=== PATIENT | female | born 1990 | race Caucasian/White ===

== ENCOUNTER 2017-12-21 16:23 | Outpatient (CLI) | payer MEDICAID, SELFPAY ==
--- NOTE | 2017-12-21 14:54 | DI.US_ITS ---
SYMPTOMS/DIAGNOSIS: DATING, Z33.1 OB ULTRASOUND: Many abnormalities cannot be diagnosed. A normal exam does not exclude a congenital anomaly. Radiology No. [id number] LMP: 10/26/17 Exam Date: 12/21/17 [facility] wks days on EDC ([facility]) Confirmed: HISTORY: ---- PREDICTED GESTATIONAL AGE NUMBER 8 weeks with a range of 7 weeks to 9 weeks. 1 Determined by___1STUS_X__LMP___HISTORY PLACENTA PRESENTATION Grade Cephalic___ Anterior___Posterior___ Breech____ Right Left Transverse(head right___ Fundal___Low-lying___Previa___ Transverse(head left___ Varying BIOMETRY AMNIOTIC FLUID BPD: mm weeks Normal HC: mm weeks Oligo Polyhydramnios AC: mm weeks FL: mm weeks AMNIOTIC FLUID INDEX >26 WK CRL: 4.2 mm 6+1 weeks Cisterna Magna: mm CI: RUQ: LUQ Cerebellum: cm EFW: grams Percentile RLQ: LLQ Total: cms Composite AGE= 6+1 wks EDC by US: 08/15/18 BIOPHYSICAL PROFILE ANATOMY IDENTIFIED SCORE 0/2 Heart: 4-Chamber___Rate:BPM 162 LVOT: RVOT: Amniotic Fluid(>2cms)____ Stomach: Kidneys: Respirations (>30 secs) Bladder: Post. Fossa: Body Flex/Extension 3 vessel cord: Ventricles: cord insertion: Lips:____ Extremity Flex/Extension spinal morphology: Nose: Total Score= Palate: NS=not seen COMMENTS: OB ultrasound was performed utilizing first trimester protocol with transabdominal and transvaginal scanning. There is an intrauterine gestation with crown-rump length measurements consistent with gestational age 6 weeks 1 day and an EDC of 08/15/18. cardiac activity is identified at a rate of 162 bpm. Right ovary contains a 16 mm simple cyst and a complex 21 mm, predominantly cystic, mixed echogenicity mass consistent with corpus luteum cyst. Left ovary is unremarkable. No free fluid identified in the cul-de-sac. A tiny amount of free right adnexal fluid.
== END 2017-12-21 16:43 ==
PROVIDERS: PCP Nurse Practitioner Family; Visit Provider Nurse Practitioner Women's Health
DX: Z34.91 Encounter for supervision of normal pregnancy, unspecified, first trimester (principal); N83.11 Corpus luteum cyst of right ovary
CPT/HCPCS: 76817

== ENCOUNTER 2018-01-10 15:57 | Outpatient (CLI) | payer MEDICAID, SELFPAY ==
[2018-01-10 16:46] LABS: Abs Immature Grans 0.01 k/cumm (0.0-0.09); Absolute Basophil Count 0.02 k/cumm (0.0-0.2); Absolute Eosinophil Count 0.06 k/cumm (0.0-0.7); Absolute Lymphocyte Count 1.59 k/cumm (1.2-3.4); Absolute Monocyte Count 0.49 k/cumm (0.11-0.7); Absolute Neutrophil Count 5.34 k/cumm (1.2-6.7); Basophils % 0.3; Eosinophils % 0.8; HCT 37.6 % (36.0-46.0); Immature Grans % 0.1; Lymphocytes % 21.2; Mean Corp. HGB Concentration 34.6 g/dL (32.0-36.0); Mean Corpuscular Volume 86.8 fL (80-95); Mean Platelet Volume 10.5 fL (8.0-11.0); Monocytes % 6.5; Neutrophils % 71.1; Platelet Count 262 x1000/uL (130-400); RBC 4.33 m/cumm (4.00-5.20); RBC Distribution Width 12.4 % (11.7-14.6); White Blood Cell Count 7.51 k/cumm (4.4-10.8)
[2018-01-10 18:45] LABS: TSH (W/Ref FT4) 1.12 uIU/mL (0.358-3.74)
[2018-01-12 09:11] LABS: Hepatitis B Surface Ag Negative (NEGAT)
[2018-01-12 09:20] LABS: Hepatitis C Ab w Rflx HCV PCR Negative (NEGAT)
[2018-01-12 10:11] LABS: HIV-1/2 Ag & Ab Screen Negative (NEGAT)
[2018-01-12 14:32] LABS: Rubella IgG Ab (UVM) Positive; Syphilis Serology (RPR) Negative (Negative); Varicella IgG Antibody Positive
== END 2018-01-10 16:17 ==
PROVIDERS: PCP Nurse Practitioner Family; Visit Provider Advanced Practice Midwife
DX: Z34.91 Encounter for supervision of normal pregnancy, unspecified, first trimester (principal); Z11.59 Encounter for screening for other viral diseases; Z11.4 Encounter for screening for human immunodeficiency virus [HIV]
CPT/HCPCS: 36415; 80055; 86787; 86803; 86850; 86900; 86901; 87340; 87389; 84443; 86592; 86762

== ENCOUNTER 2018-01-10 16:48 | Outpatient (REF) | payer MEDICAID, SELFPAY ==
[2018-01-10 18:34] LABS: *AMPHETAMINES SCREEN URINE Negative (Negative); *BARBITURATES SCREEN URINE Negative (Negative); *BENZODIAZEPINES SCREEN URINE Negative (Negative); Cannabinoids THC Negative (Negative); Cocaine Screen,Urine Negative (Negative); METHADONE URINE SCREEN Negative (Negative); OPIATES URINE SCREEN Negative (Negative)
[2018-01-10 18:43] LABS: Tricyclic Antidepressants Negative (Negative)
[2018-01-12 14:48] LABS: Chlamydia Result Negative; GC Result Negative; Specimen Description CERVIX
[2018-01-14 14:21] LABS: Buprenorphine Negative; Norbuprenorphine Negative
== END 2018-01-10 17:08 ==
LOC: LBN 16:48
PROVIDERS: PCP Nurse Practitioner Family; Visit Provider Advanced Practice Midwife
DX: Z34.91 Encounter for supervision of normal pregnancy, unspecified, first trimester (principal); Z11.3 Encounter for screening for infections with a predominantly sexual mode of transmission
CPT/HCPCS: 80307; 87491; 87591; 87086

== ENCOUNTER 2018-01-20 14:42 | Outpatient (CLI) | payer MEDICAID, SELFPAY ==
[2018-01-20 16:25] LABS: Glucose,1 Hr (Glucola) 75 mg/dL (80-140)
== END 2018-01-20 15:02 ==
PROVIDERS: PCP Nurse Practitioner Family; Visit Provider Advanced Practice Midwife
DX: Z34.91 Encounter for supervision of normal pregnancy, unspecified, first trimester (principal)
CPT/HCPCS: 36415; 82950

== ENCOUNTER 2018-03-21 00:38 | Outpatient (CLI) | payer MEDICAID, SELFPAY ==
--- NOTE | 2018-03-21 10:48 | DI.US_ITS ---
SYMPTOMS/DIAGNOSIS: ROUTINE [facility], Z33.1 OB ULTRASOUND: Many abnormalities cannot be diagnosed. A normal exam does not exclude a congenital anomaly. Radiology No. [id number] LMP: Exam Date: 03/21/18 [facility] wks days on EDC ([facility]) 08/15/08 Confirmed: HISTORY: PREDICTED GESTATIONAL AGE NUMBER 19 weeks with a range of 18 weeks to 20 weeks. 1 Determined by_X__1ST US___LMP___HISTORY PLACENTA PRESENTATION Grade I Cephalic___ Anterior___Posterior_X__ Breech____ Right Left Transverse(head right___ Fundal___Low-lying___Previa___ Transverse(head left___ Varying__X____ BIOMETRY AMNIOTIC FLUID BPD: 44 mm 19+1 weeks Normal HC: 167 mm 19+3 weeks AC: 140 mm 19+3 weeks FL: 29 mm 19 weeks AMNIOTIC FLUID INDEX >26 WK CRL: mm weeks Cisterna Magna: 4.5 mm CI: 77 RUQ: LUQ Cerebellum: 1.9 cm EFW: 281 grams Percentile: 60th RLQ: LLQ Total: cms Composite AGE= 19+2 wks EDC by US: 08/13/18 BIOPHYSICAL PROFILE ANATOMY IDENTIFIED SCORE 0/2 Heart: 4-Chamber_X__Rate:BPM 141 LVOT: X RVOT:__X Amniotic Fluid(>2cms)____ Stomach:__X Kidneys:__X Respirations (>30 secs) Bladder:___X Post. Fossa:___X Body Flex/Extension 3-vessel cord:___X____Ventricles:____X Cord insertion:__X___ Lips:_X___ Extremity Flex/Extension Spinal morphology:__X Nose:__X___ Total Score= Palate:___X____ NS=not seen
== END 2018-03-21 00:58 ==
PROVIDERS: PCP Nurse Practitioner Family; Visit Provider Advanced Practice Midwife
DX: Z34.92 Encounter for supervision of normal pregnancy, unspecified, second trimester (principal)
CPT/HCPCS: 76805

== ENCOUNTER 2018-05-03 15:29 | Observation (INO) | payer MEDICAID, SELFPAY ==
[2018-05-03] VITALS (9 sets, daily range): BP systolic 125–129; BP diastolic 60–85; PULSE 73–88; RESP 13–19; TEMP 37; O2SAT 96–100
--- NOTE | 2018-05-03 16:02 | DI.US_ITS ---
SYMPTOM/DIAGNOSIS: EVAL OVARIES, BABY OB ULTRASOUND: Comparison is made with 21 Mar 2018 The fetus is in breech position. The placenta is posterior. The biometric measurements corresponds to 25 weeks 1 day which is consistent with previous dating. cardiac activity and motion were identified. The amniotic fluid index appears normal at 13.8 Both ovaries were visualized which show normal blood flow. No evidence of mass or torsion seen. There is no free fluid in the pelvis. IMPRESSION: Intact placenta. Normal LAURA. Normal ovaries. No abnormalities are identified.
--- NOTE | 2018-05-03 16:02 | DI.US_ITS ---
SYMPTOM/DIAGNOSIS: EVAL APPE LIMITED ABDOMEN ULTRASOUND: The area of the patient's pain in the abdominal wall was scanned. There is a circumscribed ovoid homogeneous fatty echogenicity area corresponding to the palpable abnormality in the midline above the level of the umbilicus. It measures 4.2 x 1.1 x 3.1. The findings could represent a lipoma. No definite hernia is seen although a fatty containing hernia is also a possibility. No suspicious mass or fluid collection is seen. IMPRESSION: 4.2 cm fatty containing lesion above the umbilicus corresponding to the palpable abnormality could represent a lipoma vs fatty containing hernia.
[2018-05-03] MEDS: Normal Saline 1,000 ML 1000 ML IV (16:08)
[2018-05-03] MEDS: Acetaminophen 500 MG TAB 1000 MG PO (16:08)
[2018-05-03 16:17] LABS: Abs Immature Grans 0.01 k/cumm (0.0-0.09); Absolute Basophil Count 0.01 k/cumm (0.0-0.2); Absolute Eosinophil Count 0.03 k/cumm (0.0-0.7); Absolute Lymphocyte Count 1.86 k/cumm (1.2-3.4); Absolute Neutrophil Count 5.41 k/cumm (1.2-6.7); Basophils % 0.1; Eosinophils % 0.4; HCT 35.6 % (36.0-46.0); Immature Grans % 0.1; Lymphocytes % 23.2; Mean Corp. HGB Concentration 33.7 g/dL (32.0-36.0); Mean Corpuscular Hemoglobin 29.9 pg (27.0-33.0); Mean Corpuscular Volume 88.8 fL (80-95); Mean Platelet Volume 10.4 fL (8.0-11.0); Monocytes % 8.7; Neutrophils % 67.5; Platelet Count 245 x1000/uL (130-400); RBC 4.01 m/cumm (4.00-5.20); RBC Distribution Width 12.7 % (11.7-14.6); White Blood Cell Count 8.02 k/cumm (4.4-10.8)
[2018-05-03 16:25] LABS: Bilirubin Negative (Negative); Blood Negative (Negative); Clarity Clear; Glucose Negative (Negative); Ketones Trace mg/dL (Negative); Leukocyte Esterase Negative (Negative); Nitrite Negative (Negative); Specific Gravity 1.025 (1.005-1.025); Urobilinogen 0.2 EU/dL (Up TO 0.2)
[2018-05-03 16:50] LABS: ALT 24 U/L (12-78); AST 25 U/L (15-37); Albumin 3.1 g/dL (3.4-5.0); Alkaline Phosphatase 51 U/L (46-116); Anion Gap 11.3 mmol/L (3-11); BUN 13 mg/dL (7-18); Bilirubin, Total 0.3 mg/dL (0.2-1.0); CO2 25.7 mmol/L (21.0-32.0); CREATININE 0.63 mg/dL (0.55-1.02); Calcium 8.9 mg/dL (8.5-10.1); Chloride 100 mmol/L (98-107); Glucose 80 mg/dL (70-100); Lipase 129 U/L (73-393); Potassium 3.3 mmol/L (3.5-5.1); Sodium 137 mmol/L (136-145); Total Protein 7.5 g/dL (6.4-8.2)
--- NOTE | 2018-05-03 17:18 | SCONE_ITS ---
Date of service: 05/03/18 Time of Service: 17:12 Assessment and Plan (1) : Start date: 05/03/18 Start time: 17:15 Current visit: No Status: Acute pt seen and examined bs, seems like related to he no WBC hungry with pain not consistant with acute appy us done unable to visulize the appendix (2) Abdominal pain affecting : Start date: 05/03/18 Start time: 17:17 Current visit: Yes Status: Acute ob to see patient History of Present Illness Chief Complaint: abd pain, goes across my abdomen Narrative: pt was eating hungry and feels better Review of Systems Review of Systems All systems reviewed & are unremarkable except as noted in HPI and below Constitutional Reports as per HPI Gastrointestinal Reports as per HPI and Reports abdominal pain PFSH Medical History Contraception (Resolved) Tobacco use disorder (Resolved) Family History Other History of hypertension Social History household members: significant other and children number of children: 2 current occupational status: employed current occupation: [employer] current occupational exposures/hazards: Yes Smoking/Tobacco Use Status: Former Tobacco Use alcohol intake: never substance use type: does not use seatbelt use: always do you feel safe at home: Yes victim of physical abuse: No victim of emotional abuse: No victim of sexual abuse: No History History 3 Para 2 Hx # Term Pregnancies 1 Multiple births 0 Hx # Pregnancies 1 Ectopic pregnancies 0 AB induced 0 Hx Number of Living Children 2 AB spontaneous 0 Exam GI Inspection: normal to inspection Palpation: soft Percussion: normal to percussion Auscultation: normal bowel sounds Results Last Vital Signs Temp 37 C 05/03/18 15:40 Pulse 73 05/03/18 16:48 Resp 17 05/03/18 16:48 BP 125/60 05/03/18 16:48 Pulse Ox 98 05/03/18 16:48 Labs : 05/03/18 15:40 05/03/18 15:40 Laboratory Results - last 24 hr 05/03/18 05/03/18 05/03/18 15:40 15:40 16:15 WBC 8.02 RBC 4.01 Hgb 12.0 Hct 35.6 L MCV 88.8 MCH 29.9 MCHC 33.7 RDW 12.7 Plt Count 245 MPV 10.4 Immature Gran % 0.1 Neutrophils % 67.5 Lymphocytes % 23.2 Monocytes % 8.7 Eosinophils % 0.4 Basophils % 0.1 Absolute Neutrophils 5.41 Absolute Lymphocytes 1.86 Absolute Monocytes 0.70 Absolute Eosinophils 0.03 Absolute Basophils 0.01 Sodium 137 Potassium 3.3 L Chloride 100 Carbon Dioxide 25.7 Anion Gap 11.3 H BUN 13 Creatinine 0.63 Estimated GFR/1.73 m2 >= 60.00 Glucose 80 Calcium 8.9 Total Bilirubin 0.3 AST 25 ALT 24 Alkaline Phosphatase 51 Total Protein 7.5 Albumin 3.1 L Lipase 129 Urine Color Yellow Urine Clarity Clear Urine pH 7.0 Ur Specific [place] 1.025 Urine Protein Negative Urine Ketones Trace H Urine Blood Negative Urine Nitrite Negative Urine Bilirubin Negative Urine Urobilinogen 0.2 Ur Leukocyte Esterase Negative Urine Glucose Negative
--- NOTE | 2018-05-03 17:19 | W.ED.GENAD ---
Discharge Plan Disposition Patient Disposition: [facility] INPATIENT Condition: Good Discharge Details Chief Complaint: EDUCATION PROFESSIONAL Clinical Impression: , Abdominal pain affecting Reason For Visit: PELVIC PAIN Admit Date/Time: 05/03/18 17:18 Admit Provider: Ana Parmar Attending Provider: Ana Parmar Primary Care Provider: Cathleen Perry ED Provider: Gus Osborn Discharge Data Discharge Date/Time-TO BE ENTERED AT DEPARTURE: 05/03/18 17:45 Medical Decision Making This is a pleasant 27-year-old female who is 25 weeks who is a presents today for evaluation of lower pelvic pain and mild periumbilical pain. Pain is been present for the last few hours. It is achy in nature, she has had no concerning symptoms of vaginal discharge, vaginal bleeding, or change in the baby's movements. Baby's heart rate was 140 by bedside nursing ultrasound exam. Physical exam demonstrates mild tenderness in the lower abdominal/pelvic regions. She denies any dysuria, or hematuria. She does have a small amount of tenderness over the periumbilical region, and there is a vaguely palpable mass that can be palpated however there is no redness, induration, or firmness. No auscultation of bowel sounds over this. I doubt incarcerated hernia or strangulated hernia. Differential does include mass, lipoma, or fatty hernia. With the location of the patient's pain differential in addition to various obstetrics etiologies including ovarian torsion, ovarian cyst, placental tissue, also includes appendicitis. I would have expected the pain to be in the right upper quadrant due to her if it was appendicitis however it still remains on the differential. Urinalysis is benign, laboratory workup shows no white count or bandemia. We did get an ultrasound, there is no evidence of incarceration or strangulation of bowel or presence of bowel in the periumbilical lesion. Essentially a lipoma per radiology report. The majority of her pain being in the lower abdominal regions and pelvic regions the ovaries were visualized and showed no evidence of torsion or significant cyst. Appendix was not visualized. Babies biophysical profile was otherwise benign. Patient had notable improvement of her symptoms with Tylenol and fluids. She is feeling much better at this time, and also feels hunger and a desire to eat. We did consult surgery and had Dr. Borden, and assessed the patient. He too feels that there is no acute surgical etiology and no clinical evidence of appendicitis at this time. However she has noticed what she feels may be contractions occurring every 3 minutes. We did consult the patient's wildlife management professor who is managing her care, I discussed the case with her. She agrees with the current workup and agrees with the need for continued monitoring. Patient will be transferred directly to the OB floor for further monitoring and management by the OB team. I have extensively reviewed the treatment plan with the patient. I have addressed all patient concerns at this time. I have also discussed the plan with the admitting physician and they agree with the current assessment and plan and have agreed to assume responsibility for the patient. All parties demonstrate verbal understanding and agreement with our assessment and plan at this time. CLINICAL HISTORY: 27 years old, female; Pain; Other: Rlq pain/ midline abd pain; PT 25 weeks preg; ; Additional info: PT C/O midline abdominal pain/lump superior to umbilicus which shows a 4.2 x 1.1 x 3.1 cm solid mass w/ mild vascularity ? lipoma vs mass. PT vaguely C/O rlq pain; Appendix not visualized TECHNIQUE: Real-time ultrasound of the abdomen with image documentation. Examination was focused on the appendix. COMPARISON: US OB 2-3 trimester 05/03/2018 4:23 PM FINDINGS: Appendix: Appendix not identified. No sonographic abnormality right lower quadrant. Soft tissues: Ovoid slightly hypoechoic solid lesion anterior abdominal wall at midline at the area of clinical concern, 4.2 x 1.1 x 3.1 cm. IMPRESSION: 1. Appendix not identified. No sonographic abnormality right lower quadrant. 2. Ovoid slightly hypoechoic solid lesion anterior abdominal wall at midline at the area of clinical concern, 4.2 x 1.1 x 3.1 cm. Dictated and Authenticated by: Shivam Gee MD. OB ULTRASOUND: Comparison is made with 21 Mar 2018 The fetus is in breech position. The placenta is posterior. The biometric measurements corresponds to 25 weeks 1 day which is consistent with previous dating. cardiac activity and motion were identified. The amniotic fluid index appears normal at 13.8 Both ovaries were visualized which show normal blood flow. No evidence of mass or torsion seen. There is no free fluid in the pelvis. IMPRESSION: Intact placenta. Normal LAURA. Normal ovaries. No abnormalities are identified. Ordered By: Irena,Gus R DO [facility] General Date/Time Provider Initiated Documentation: 05/03/18 15:38. HPI Narrative: This is a 27-year-old female who is a currently at 25 weeks who presents today for evaluation of abdominal cramping. Patient states that 2-3 hours ago she developed mild cramping-like sensation in her right lower quadrant that radiates to her left lower quadrant. Pain is relatively constant, she denies any vaginal discharge, dysuria, hematuria or increased urinary frequency. She does admit to some mild nausea but denies any significant vomiting. She has been eating and drinking well throughout the day, and has been having regular bowel movements. She states that baby has still been kicking since the symptoms began. She denies any recent intercourse or painful intercourse. She denies any previous abdominal surgeries. She denies any other modifying factors. She denies any pertinent family history or IV or illicit drug use. Related Data Home Medications Medication Instructions Recorded Confirmed multivitamin tablet 1 tab PO DAILY 12/26/17 05/03/18 ranitidine 150 mg capsule 150 mg PO BID cap 12/26/17 05/03/18 docusate sodium 100 mg capsule 100 mg PO DAILY #60 cap 01/10/18 05/03/18 aspirin 81 mg tablet,delayed 81 mg PO DAILY tab 02/07/18 05/03/18 release ondansetron 8 mg disintegrating 8 mg PO TID PRN #10 tab 02/08/18 05/03/18 tablet Previous Rx's Medication Instructions Recorded docusate sodium 100 mg capsule 100 mg PO DAILY #60 cap 01/10/18 ondansetron 8 mg disintegrating 8 mg PO TID PRN #10 tab 02/08/18 tablet Allergies Allergy/AdvReac Type Severity Reaction Status Date / Time No Known Drug Allergies Allergy none Unverified 05/03/18 15:43 General 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: 2 Review of Systems Review of Systems All systems reviewed & are unremarkable except as noted in HPI and below PFSH Medical History Contraception (Resolved) Tobacco use disorder (Resolved) Family History Other History of hypertension Social History household members: significant other and children number of children: 2 current occupational status: employed 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 current occupational exposures/hazards: Yes Smoking/Tobacco Use Status: Former Tobacco Use alcohol intake: never substance use type: does not use seatbelt use: always do you feel safe at home: Yes victim of physical abuse: No victim of emotional abuse: No victim of sexual abuse: No History History 3 Para 2 Hx # Term Pregnancies 1 Multiple births 0 Hx # Pregnancies 1 Ectopic pregnancies 0 AB induced 0 Hx Number of Living Children 2 AB spontaneous 0 Exam Narrative Exam Narrative: 1.Const: Well-nourished, Well-developed, appearing stated age 2.Eyes: PERRL, no conjunctival injection, and symmetrical lids. 3.ENT: Atraumatic external nose and ears. Moist MM. Neck: Symmetric, trachea midline, No thyromegaly. 4.CVS: +S1/S2, No murmurs or gallops. Peripheral pulses 2+ and equal in all extremities. Brisk capillary refill in all extremities. 5.RESP: Unlabored respiratory effort. Clear to auscultation bilaterally. No wheezes rales or rhonchi 6.GI: Soft, Nondistended, No hepatosplenomegaly. No guarding or rebound. Very mild pain in the right lower and left lower abdominal quadrants/left and right pelvic regions. Minimal pain in the infraumbilical region. No pain in the right upper quadrant, or left upper quadrant. No evidence of a positive obturator or psoas sign. Appropriately gravid abdomen. 7.MSK: Normocephalic/Atraumatic, Extremities w/o deformity or ttp No cyanosis or clubbing, Normal movement of all extremities 8.Skin: Warm, Dry. No rashes or lesions. 9.Neuro: magnaflux operator II-XII grossly intact. Sensation grossly intact, no focal neurologic deficits. 10.Psych: (AAO) x3. Appropriate mood and affect Course Vital Signs Temperature 37 C 05/03/18 15:40 Pulse 88 05/03/18 15:40 Respiratory Rate 16 05/03/18 15:40 Blood Pressure 129/85 05/03/18 15:40 Pulse Oximetry 99 05/03/18 15:40 Temperature 37 C 05/03/18 15:40 Temperature Source Skin 05/03/18 15:40 Pulse 73 05/03/18 16:48 Pulse 80 05/03/18 16:48 Respiratory Rate 17 05/03/18 16:48 Respiratory Effort Non-Labored 05/03/18 15:40 Blood Pressure 125/60 05/03/18 16:48 Blood Pressure Mean 76 05/03/18 16:48 Blood Pressure Position Supine 05/03/18 15:40 Pulse Oximetry 98 05/03/18 16:48 Oxygen Delivery Method Room Air 05/03/18 15:40 Oxygen Flow Rate 0 05/03/18 15:40 Pain Level 4 05/03/18 15:44 Lab/Test Results Lab/Test Results: Laboratory Tests Range/Units 05/03/18 05/03/18 05/03/18 15:40 15:40 16:15 WBC (4.4-10.8) k/cumm 8.02 RBC (4.00-5.20) m/cumm 4.01 Hgb (12.0-15.5) g/dL 12.0 Hct (36.0-46.0) % 35.6 L MCV (80-95) fL 88.8 MCH (27.0-33.0) pg 29.9 MCHC (32.0-36.0) g/dL 33.7 RDW (11.7-14.6) % 12.7 Plt Count (130-400) x1000/uL 245 MPV (8.0-11.0) fL 10.4 Immature Gran % 0.1 Neutrophils % 67.5 Lymphocytes % 23.2 Monocytes % 8.7 Eosinophils % 0.4 Basophils % 0.1 Absolute Neutrophils (1.2-6.7) k/cumm 5.41 Absolute Lymphocytes (1.2-3.4) k/cumm 1.86 Absolute Monocytes (0.11-0.7) k/cumm 0.70 Absolute Eosinophils (0.0-0.7) k/cumm 0.03 Absolute Basophils (0.0-0.2) k/cumm 0.01 Sodium (136-145) mmol/L 137 Potassium (3.5-5.1) mmol/L 3.3 L Chloride (98-107) mmol/L 100 Carbon Dioxide (21.0-32.0) mmol/L 25.7 Anion Gap (3-11) mmol/L 11.3 H BUN (7-18) mg/dL 13 Creatinine (0.55-1.02) mg/dL 0.63 Estimated GFR/1.73 m2 (mL/min/1.73m2) >= 60.00 Glucose (70-100) mg/dL 80 Calcium (8.5-10.1) mg/dL 8.9 Total Bilirubin (0.2-1.0) mg/dL 0.3 AST (15-37) U/L 25 ALT (12-78) U/L 24 Alkaline Phosphatase (46-116) U/L 51 Total Protein (6.4-8.2) g/dL 7.5 Albumin (3.4-5.0) g/dL 3.1 L Lipase (73-393) U/L 129 Urine Color (Yellow) Yellow Urine Clarity Clear Urine pH (5-8) 7.0 Ur Specific [place] (1.005-1.025) 1.025 Urine Protein (Negative) mg/dL Negative Urine Ketones (Negative) mg/dL Trace H Urine Blood (Negative) Negative Urine Nitrite (Negative) Negative Urine Bilirubin (Negative) Negative Urine Urobilinogen (Up TO 0.2) EU/dL 0.2 Ur Leukocyte Esterase (Negative) Negative Urine Glucose (Negative) mg/dL Negative
--- NOTE | 2018-05-03 17:26 | NUR.NOTE ---
report given to OBG/YN Nursing Note:
--- NOTE | 2018-05-03 17:35 | DI.VRAD_ITS ---
EXAM: US After First Trimester, Transabdominal EXAM DATE/TIME: 05/03/2018 4:37 PM CLINICAL HISTORY: 27 years old, female; Pain; complicated by abdominal or pelvic pain; Other: Rlq pain/midline pain; Gestational age or lmp: 25+1; ; Additional info: PT C/O midline abdominal pain/lump superior to umbilicus which shows a 4.2 x 1.1 x 3.1 cm solid mass w/ mild vascularity ? lipoma vs mass. PT vaguely C/O rlq pain; Appendix not visualized TECHNIQUE: Real-time transabdominal obstetrical ultrasound of the maternal pelvis and a second or third trimester with image documentation. COMPARISON: US OB 2-3 trimester 03/21/2018 6:10 PM FINDINGS: GESTATION: Gestation: Single live intrauterine gestation. Heart rate: cardiac motion present with a heart rate of 144 beats/min. Presentation: Breech position. Placenta: Unremarkable. No subchorionic bleed. Posterior placenta. Amniotic fluid: LAURA 13.8 cm. BIOMETRY: Estimated gestational age: Measurements correspond to an estimated gestational age of 25 weeks 1 days. Appropriate interval growth compared to previous exam. Estimated due date: DELBERT: August 15, 2018. Estimated weight: EFW: 764 g. Biparietal diameter: BPD: 6.2 cm 25 week 1 day +/- 15 day Head circumference: HC: 23.2 cm 25 week 1 day +/- 14 day Abdominal circumference: AC: 20.5 cm 25 week 1 day +/- 50 day Femur length: FL: 4.5 cm 24 week 6 day +/- 50 day MATERNAL: Uterus: Unremarkable. Cervix: Cervix not well-visualized. Right adnexa: Right ovary 2.8 x 2.3 x 2.1 cm. No evidence of torsion. Left adnexa: Left ovary 3.2 x 2.5 x 2.1 cm. No evidence of torsion. IMPRESSION: Single living IUP. Dictated and Authenticated by: Shivam Gee MD. Ordering:GRIFFIN Weber MD
[2018-05-03] MEDS: Normal Saline 1,000 ML 200 ML IV (18:20)
== END 2018-05-03 19:07 | disposition home or self-care (01) ==
LOC: ER 17:28 → OBS 18:12
PROVIDERS: Admitting Provider Advanced Practice Midwife; Emergency Provider Student in an Organized Health Care Education/Training Program; PCP Nurse Practitioner Family; Visit Provider Advanced Practice Midwife
DX: O26.892 Other specified pregnancy related conditions, second trimester (principal); R10.2 Pelvic and perineal pain; R10.31 Right lower quadrant pain; R10.33 Periumbilical pain; R19.05 Periumbilic swelling, mass or lump; O09.292 Supervision of pregnancy with other poor reproductive or obstetric history, second trimester; Z79.2 Long term (current) use of antibiotics; Z3A.25 25 weeks gestation of pregnancy
CPT/HCPCS: 36415; 76816; 80053; 83690; 96360; 99252; 99285; 76705; 81003; 85025; G0378

== ENCOUNTER 2018-05-04 16:52 | Outpatient (CLI) | payer MEDICAID, SELFPAY ==
[2018-05-04 18:36] LABS: Fetal Fibronectin Negative (Negative)
== END 2018-05-04 17:12 ==
PROVIDERS: PCP Nurse Practitioner Family; Visit Provider Advanced Practice Midwife
DX: O60.02 Preterm labor without delivery, second trimester (principal); Z3A.25 25 weeks gestation of pregnancy
CPT/HCPCS: 59025; 82731; G0378

== ENCOUNTER 2018-05-24 16:19 | Outpatient (CLI) | payer MEDICAID, SELFPAY ==
[2018-05-24 17:06] LABS: Mean Corp. HGB Concentration 33.3 g/dL (32.0-36.0); Mean Corpuscular Hemoglobin 29.1 pg (27.0-33.0); Mean Corpuscular Volume 87.4 fL (80-95); Platelet Count 258 x1000/uL (130-400); RBC 4.12 m/cumm (4.00-5.20); RBC Distribution Width 12.5 % (11.7-14.6); White Blood Cell Count 7.61 k/cumm (4.4-10.8)
[2018-05-24 17:10] LABS: Glucose,1 Hr (Glucola) 94 mg/dL (80-140)
== END 2018-05-24 16:39 ==
PROVIDERS: Advanced Practice Midwife; PCP Nurse Practitioner Family; Visit Provider Advanced Practice Midwife
DX: Z34.92 Encounter for supervision of normal pregnancy, unspecified, second trimester (principal)
CPT/HCPCS: 36415; 82950; 85027

== ENCOUNTER 2018-07-08 15:08 | Outpatient (CLI) | payer MEDICAID, SELFPAY ==
[2018-07-08 16:05] LABS: ROM Plus Negative
== END 2018-07-08 15:28 ==
PROVIDERS: PCP Nurse Practitioner Family; Visit Provider Advanced Practice Midwife
DX: O36.8130 Decreased fetal movements, third trimester, not applicable or unspecified (principal); Z3A.34 34 weeks gestation of pregnancy
CPT/HCPCS: 84112; 59025

== ENCOUNTER 2018-07-19 12:08 | Outpatient (REF) | payer MEDICAID, SELFPAY | END 2018-07-19 12:28 | LOC: LBN 12:08 | PROVIDERS: PCP Nurse Practitioner Family; Visit Provider Advanced Practice Midwife | DX: Z34.93 Encounter for supervision of normal pregnancy, unspecified, third trimester (principal); Z36.85 Encounter for antenatal screening for Streptococcus B | CPT/HCPCS: 87081 ==

== ENCOUNTER 2018-08-05 11:41 | Inpatient (IN) | payer MEDICAID, SELFPAY ==
[2018-08-05] MEDS: Oxytocin 10 UNITS/ML VIAL IM (12:11)
[2018-08-05] MEDS: Acetaminophen 325 MG TAB (12:30)
[2018-08-05] MEDS: Ibuprofen 600 MG TAB (12:30)
[2018-08-05] MEDS: Ibuprofen 600 MG TAB PO ×2 (12:35→22:00)
[2018-08-05] MEDS: Acetaminophen 325 MG TAB 650 MG PO ×2 (12:35→22:00)
[2018-08-05 12:38] LABS: HCT 37.6 % (36.0-46.0); HGB 12.6 g/dL (12.0-15.5); Mean Corp. HGB Concentration 33.5 g/dL (32.0-36.0); Mean Corpuscular Hemoglobin 28.9 pg (27.0-33.0); Mean Corpuscular Volume 86.2 fL (80-95); Mean Platelet Volume 10.6 fL (8.0-11.0); Platelet Count 247 x1000/uL (130-400); RBC 4.36 m/cumm (4.00-5.20); RBC Distribution Width 13.1 % (11.7-14.6); White Blood Cell Count 6.67 k/cumm (4.4-10.8)
[2018-08-06] MEDS: Ibuprofen 600 MG TAB PO ×2 (05:55→15:04)
[2018-08-06] MEDS: Acetaminophen 325 MG TAB 650 MG PO ×2 (05:55→15:04)
[2018-08-06 07:26] LABS: HCT 33.2 % (36.0-46.0); HGB 10.8 g/dL (12.0-15.5); Mean Corp. HGB Concentration 32.5 g/dL (32.0-36.0); Mean Corpuscular Hemoglobin 28.3 pg (27.0-33.0); Mean Corpuscular Volume 87.1 fL (80-95); Mean Platelet Volume 10.2 fL (8.0-11.0); Platelet Count 228 x1000/uL (130-400); RBC 3.81 m/cumm (4.00-5.20); RBC Distribution Width 13.3 % (11.7-14.6); White Blood Cell Count 8.65 k/cumm (4.4-10.8)
== END 2018-08-06 18:55 | disposition home or self-care (01) | DRG 807 ==
PROVIDERS: Admitting Provider Advanced Practice Midwife; PCP Nurse Practitioner Family; Visit Provider Advanced Practice Midwife
DX: O69.1XX0 Labor and delivery complicated by cord around neck, with compression, not applicable or unspecified (principal); Z37.0 Single live birth; Z3A.38 38 weeks gestation of pregnancy; O62.3 Precipitate labor
CPT/HCPCS: 36415; 85027; 86850; 86900; 86901

== ENCOUNTER 2018-09-12 12:47 | Outpatient (CLI) | payer MEDICAID, SELFPAY ==
[2018-09-12 15:22] LABS: HCT 39.7 % (36.0-46.0); Mean Corp. HGB Concentration 32.7 g/dL (32.0-36.0); Mean Corpuscular Hemoglobin 27.9 pg (27.0-33.0); Mean Corpuscular Volume 85.2 fL (80-95); Mean Platelet Volume 10.6 fL (8.0-11.0); Platelet Count 267 x1000/uL (130-400); RBC 4.66 m/cumm (4.00-5.20); RBC Distribution Width 12.8 % (11.7-14.6); White Blood Cell Count 5.24 k/cumm (4.4-10.8)
[2018-09-12 16:04] LABS: Anion Gap 9.5 mmol/L (3-11); BUN 10 mg/dL (7-18); CO2 26.5 mmol/L (21.0-32.0); CREATININE 0.91 mg/dL (0.55-1.02); Calcium 9.3 mg/dL (8.5-10.1); Chloride 104 mmol/L (98-107); Glucose 82 mg/dL (70-100); Potassium 3.8 mmol/L (3.5-5.1); Sodium 140 mmol/L (136-145)
== END 2018-09-12 13:07 ==
PROVIDERS: PCP Nurse Practitioner Family; Visit Provider Obstetrics & Gynecology Gynecology
DX: Z01.812 Encounter for preprocedural laboratory examination (principal)
CPT/HCPCS: 36415; 80048; 85027; 86850; 86900; 86901

== ENCOUNTER 2018-09-13 06:15 | Day surgery (SDC) | payer MEDICAID, SELFPAY ==
[2018-09-13] VITALS (7 sets, daily range): BP systolic 107–121; BP diastolic 61–75; PULSE 53–86; RESP 16–19; TEMP 36.6–36.8; O2SAT 97–99
[2018-09-13] MEDS: Lactated Ringers 1,000 ML 125 ML IV (06:48)
[2018-09-13] MEDS: Bupivacaine 0.25% Pres-Free 30 ML VIAL (08:04)
--- NOTE | 2018-09-13 08:42 | FALL_PTH ---
PATIENT: Cecilia Palacios LOC: [facility] U#:[id number] AGE/SX: 27/F ROOM: RE09/13/[address]: Josiane Yao : 1990 BED: DIS: 09/13/2018 SPEC #: [id number] RECD: 09/13/18 12:48 STATUS: DAISY REHector #: [id number] CHARO: 09/13/18 08:[address]: Josiane Yao DEPT: Surgical Specimen RECD BY: Mora Howard ENTERED: 09/13/18 12:50 SP TYPE: Fall OTHR DR: Cathleen Perry Tissues: 1 - FALLOPIAN TUBE (STERILIZATION) 2 - FALLOPIAN TUBE (STERILIZATION) Procedures: GROSS AND MICRO LEVEL 2 Comments: [id number]
[2018-09-13] MEDS: fentaNYL 100 MCG/2 ML VIAL IVP (09:35)
--- NOTE | 2018-09-13 16:40 | ROE_ITS ---
Date of service: 09/13/18 Time of Service: 16:35 Operative Note DATE OF PROCEDURE: 09/13/18 PRE-OP DIAGNOSIS: Multiparity desires sterilization POST-OP DIAGNOSIS: same PROCEDURE: Laparoscopic-assisted bilateral salpingectomy. SURGEON: Josiane Yao ASSISTING SURGEON: Latosha Ramirez ANESTHESIA: GETA ESTIMATED BLOOD LOSS: 0 PATHOLOGY: other (Bilateral fallopian tubes to pathology) COMPLICATIONS: None Patient was transported to: PACU Patient's condition: stable Implants: None Indications: 27-year-old multiparous female who desires permanent sterilization. She had been counseled during her and in the period regarding alternatives to permanent sterilization. She declined all methods other than tubal sterilization Findings: Normal pelvis and upper abdomen. Left ovarian cyst. Procedure Description: Patient was taken to the operating room where she is placed in the dorsal supine position and general endotracheal anesthesia was administered without difficulty. A Villasenor catheter was inserted to gravity drain age. She was prepped and draped in the usual sterile fashion. SCDs were in place and no antibiotics were administered. A surgical timeout was performed. Attention was turned to the patient's abdomen where quarter percent Marcaine was used to infiltrate the base of the umbilicus. A 1 cm skin incision was made in a vertical fold. A transabdominal ultrasound was used to measure the depth of the subcutaneous tissue and the skin around the umbilicus was tented up with penetrating towel clips. A varies needle attached to carbon dioxide flow was inserted under ultrasound guidance and a subsequent drop in the intra-abdominal pressure was observed however the ultrasound images suggested that the areas had not passed through the rectus sheath. There is was withdrawn, dioxide gas flow was stopped and the varies needle attached to normal saline and syringe. Once again under direct ultrasound guidance the peritoneal was introduced and the depths of the various placement caged by the appearance of normal saline being injected into the tissue plane superior to the rectus sheath. The veres needle was then introduced through the rectus sheath and intra-abdominal placement confirmed by use of the saline drop test. Pneumoperitoneum was achieved and a 10 mm Visiport trochar was introduced through the umbilical incision and intra- abdominal placement confirmed by use of the laparoscope. The umbilical trocar was changed out for a longer trocar which allowed better visualization of the pelvic contents. Patient was placed in Trendelenburg and under direct visualization two 5 mm ports were placed in the right and left lower quadrants respectively after infiltration of the sites with quarter percent Marcaine. The abdomen and pelvis were inspected as noted above. The right fallopian tube was located, grasped and followed out to its fimbriated end a LigaSure device was then used to clamp cauterize and transect the proximal right fallopian tube of the right uterine cornua. LigaSure was then used to sequentially clamp, cauterized and transected the mesosalpinx and attachments to the right ovary at the fimbriated end. Transected the fallopian tube was then placed in the anterior cul-de-sac and attention was then turned to the left fallopian tube. The similar fashion the left fallopian tube was grasped transected and cauterized at its attachment to the left uterine cornua. The left mesosalpinx was then cauterized and transected. Both pedicles were noted to be hemostatic. The left fallopian tube was delivered through the right 5 mm trocar. The right fallopian tube was delivered through the 10 mm trocar. Final inspection was performed of the pedicles and under direct visualization both lower trochars were removed and the sites found to be hemostatic. Pneumoperitoneum reduced 10 mm trocar was removed and the rectus fascia was reapproximated with 2 interrupted sutures of 0 Vicryl. Skin of the incisions was reapproximated with subcuticular suture of 4-0 Mon ocryl and skin sealed with skin glue. Villasenor catheter was removed with approximately 100 cc of clear bronson urine in the Villasenor bag at the completion of the procedure. With the patient in the supine position she was awakened, extubated and transported to recovery area in stable condition all sponge lap needle counts correct x2.
== END 2018-09-13 11:25 | disposition home or self-care (01) ==
PROVIDERS: PCP Nurse Practitioner Family; Visit Provider Obstetrics & Gynecology Gynecology
PROC: (CPT 58661; principal; 2018-09-13 07:30)
DX: Z30.2 Encounter for sterilization (principal)
CPT/HCPCS: 58661; 81025; 88302; J0131; J1100; J1200; J1885; J2001; J2250; J2405; J3010

== ENCOUNTER 2019-08-02 19:16 | Emergency (ER) | payer OTHER, SELFPAY ==
[2019-08-02 19:20] VITALS: BP 136/74; PULSE 88; RESP 16; TEMP 36.9; O2SAT 97
[2019-08-02 19:23] VITALS: RESP 16
--- NOTE | 2019-08-02 19:53 | ED.GENADUL_ITS ---
Discharge Plan Disposition Patient Disposition: HOME Condition: Stable Discharge Details Chief Complaint: Chest Pain Clinical Impression: Gastritis, Atypical chest pain, Anxiety Primary Care Provider: Nolvia Becerra ED Provider: Nikia Pelayo Home Meds and New Rx's Prescriptions: New sucralfate [Carafate] 1 gram tablet 1 gm PO Q6H Qty: 28 RF: 0 omeprazole 20 mg capsule,delayed release(DR/EC) 20 mg PO DAILY Qty: 7 RF: 0 Discharge Instructions Instructions: Chest Pain (ED), Gastritis (ED), Anxiety (ED) Additional Instructions: Plenty of water. Rest activities as tolerated Get plenty of sleep Use omeprazole as prescribed for 1 week. After discontinuing omeprazole switch to Pepcid for 2 to 3 weeks Sucralfate for 1 week. Use half a tablet of Ativan every 8 hours if needed for severe anxiety. Follow-up with your counselor next week. Follow-up with your PCP as discussed for TSH lab changes, EKG changes which are nonspecific as well as suspected mild heart murmur. Return for any worsening, concerns or alarming symptoms sooner if needed Medical Decision Making Is a 28-year-old patient presenting to the emergency room this evening for complaints of chest pain. Patient reports left-sided chest pain which has been occurring intermittent episodes for the last 2 weeks. Patient reports episodes last approximately 15 to 30 minutes. Patient reports approximately 5 or more episodes per day. Patient reports since waking this morning chest pain has been constant. Patient denies any obvious alleviating or aggravating symptoms. Patient does report the pain is less noticeable when ambulating. Patient denies any pleuritic component of pain. Patient reports a baseline cough and is a smoker reports cough is unchanged. Patient denies associated shortness of breath, difficulty breathing or wheezing. Denies headache or dizziness. Denies feeling of syncope. 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 Patient has 3 children. Reports occasional sensation of her heart racing. Reports difficulty sleeping at night due to racing thoughts. Patient reports she is eating less due to her anxiety. Patient denies any significant history of anxiety in the past. She has been working with her managers and has been reaching out to her family for support. She does have an initial appointment with a counselor next week. Patient denies any abdominal pain. No bowel changes. No other concerns or complaints at this time. Denies lower extremity swelling. Initial evaluation of the patient reveals normal vital signs. Patient is tearful and anxious appearing. Patient has no apparent distress, breathing easily. Patient has clear breath sounds. Evaluation of patient's heart, sinus rhythm, question of a small systolic murmur on exam. We will plan to check EKG, d-dimer and chest x-ray. Single troponin given patient's pain is been constant through the day today. Discussed use of anxiety medication, patient will try to obtain a ride home as she did drive herself here. Patient agrees with this initial plan of care. EKG reveals sinus rhythm with a heart rate of 78, QTc 394. Mild T wave inversion noted in 3 and aVF. [address] segment depression noted in 2 3 aVF, V4 through V6. No ST elevation UT present. This was reviewed with Melodie Nugent. No previous for comparison. Patient's labs reveal normal CBC, within normal limits CMP with the exception of potassium 3.3. Initial troponin negative. D-dimer 225. TSH is mildly elevated free T4 within normal limits. Patient is a smoker, no use of control, no significant family history of cardiac disease. Patient's had chest pain which is been constant throughout the day. Troponin is negative. I doubt ACS based on patient's age and significant anxiety symptoms associated which seemed to have precede onset of her chest pain. EKG findings are nonspecific. No obvious ST elevation UT. Patient is a heart score of 2. Chest x-ray normal Patient has mild persistent chest pain which she describes as somewhat sharp, nonreproducible however somewhat improved massage. Patient given Ativan due to her persistent anxiety. Recheck of patient is sleeping comfortably in the bed. Reports her anxiety is significantly improved however she does have her mild persistent chest discomfort. Will trial GI cocktail. As patient also has a history of reflux and no longer takes her GERD medication Patient reports full resolution of her symptoms after GI cocktail. It is possible given patient's 2 months of anxiety she is developed a mild gastritis. Given patient's full resolution of pain will recommend she restart a PPI and will provide prescription for 1 week of PPI I have directed her to switch to Pepcid thereafter she completes the 1 week course we will also give Carafate for 1 week for symptomatic relief. Patient agrees with this plan of care. Given patient's severe anxiety and improved sensation of anxiety after Ativan I will provide her 2 tablets for home and direct her to use half a tablet if needed for severe anxiety or panic. Patient agrees with this plan of care. Patient is due to see her new counselor next week. Will recommend follow-up with PCP as well as with her counselor for mental health purposes. She does not think she needs any acute mental health evaluation today. Repeat EKG reveals sinus rhythm with a heart rate of 77. EKG within normal limits however there is a persistent nonspecific T wave inversion in [address] elevation [place] present. Reviewed with Marco Leary. Unchanged from previous. Given patient significant improvement, continued stable vital signs and reassuring evaluation will plan to discharge. Patient agrees with this plan of discharge and follow-up with PCP. Recommended TSH follow-up with PCP, follow-up with nonspecific EKG changes as well as subtle heart murmur noted on exam. Patient agrees with this plan of care. Will discharge home to right of her choosing. The patient was stable and requested discharge. Prior to discharge, my usual and customary return precautions were reviewed with the patient - this included follow-up instructions and reasons to return to the Emergency Department if conditions worsens, does not improve as expected, or other new concerns arise. HPI General Date/Time Provider Initiated Documentation: 08/02/19 19:18 . HPI Narrative: This is an anxious appearing 28-year-old patient working as an NETWORK PROGRAMMER at [employer] who is reporting feeling very anxious. She reports having 2 months of anxiety since onset of Covid training. Patient reports she is a smoker which makes her increasingly anxious in the setting of this virus. Patient is presenting to the emergency room this evening for 2 weeks of intermittent chest pain. Patient reports a left-sided chest pain with some radiation toward her armpit. Patient is a denies exertional quality of pain. Denies pleuritic pain. She does report pain is been intermittent reporting approximately 5-10 episodes lasting 15 minutes for the last 2 weeks. Patient reports today pain has been constant which prompted her evaluation. Patient denies diaphoresis, dizziness, weakness, fatigue. Denies nausea or vomiting. Denies shortness of breath, difficulty breathing. Denies fevers or chills. Patient does report decrease p.o. intake which she attributes to her anxiety in the last 2 months. Patient reports difficulty sleeping due to racing thoughts at night. Patient does report occasionally she feels her heart is racing. Patient denies any abdominal complaints. Denies bowel changes. Urinating without difficulty. No concern of Related Data Home Medications Medication Instructions Recorded Confirmed omeprazole 20 mg PO DAILY #7 cap 08/02/19 sucralfate [Carafate] 1 gm PO Q6H #28 tab 08/02/19 Previous Rx's Medication Instructions Recorded omeprazole 20 mg PO DAILY #7 cap 08/02/19 sucralfate [Carafate] 1 gm PO Q6H #28 tab 08/02/19 Allergies Allergy/AdvReac Type Severity Reaction Status Date / Time No Known Drug Allergies Allergy none Verified 09/20/18 14:19 General Stated Complaint: Chest Pain PEPE: 3 Review of Systems No All systems reviewed & are unremarkable except as noted in HPI and below Constitutional Constitutional: Denies chills, Denies fatigue, Denies fever(s), Denies headache(s) and Denies malaise ENT Ears, Nose, Mouth, and Throat: Denies dizziness, Denies headache(s), Denies nasal congestion and Denies sore throat Cardiovascular Cardiovascular: Reports chest pain, Denies diaphoresis, Denies syncope, Reports palpitations and Denies dyspnea Respiratory Respiratory: Reports cough (baseline), Denies dyspnea and Denies wheezing Gastrointestinal Gastrointestinal: Denies abdominal pain, Denies nausea and Denies vomiting Genitourinary Genitourinary: Denies dysuria and Denies urinary urgency Neurologic Neurologic: Denies dizziness, Denies syncope and Denies headache(s) Endocrine Endocrine: Denies fatigue and Reports palpitations Allergic/Immunologic Allergic/Immunologic: Denies wheezing [facility] Medical History BMI 30.0-30.9,adult (Chronic) Contraception (Resolved) Nexplanon in 06/2015 GERD (gastroesophageal reflux disease) (Chronic) History of postoperative nausea and vomiting (Acute) History of tobacco abuse (Chronic) Irritable bowel (Chronic) Tobacco use disorder (Resolved) 1/2 ppd x 3yrs. doesn't smoke inside or around daughter Surgical History Hx of wisdom tooth extraction (Acute) Social History Smoking/Tobacco Use Status: Current every day Tobacco Type: cigarettes Tobacco: How many years used: 7 Alcohol Intake: never Drug use: Never Substance use type: does not use Household members: significant other, children and other Details: BF Jose Alfredo. 08/05/18 Lesia Number of Children: 3 Education Level: vocational current occupation: [employer] Sexually active: Yes What type of physical activity do you participate in: normal ROM and activity Seatbelt use: always Do you feel safe at home: Yes Do you feel safe in your relationship?: Yes Victim of physical abuse: No Victim of emotional abuse: No Victim of sexual abuse: No History History 3 Para 3 Hx # Term Pregnancies 2 Multiple births 0 Hx # Pregnancies 1 Ectopic pregnancies 0 AB induced 0 Hx Number of Living Children 3 AB spontaneous 0 Past Pregnancies Del. Date GA/Weeks # Outcome Route Wgt Sex Labor Lgth Anesthes ia Location Prov Complic 11/09/11 36 No Successful vaginal 2.353 kg Female 1.5 al 01/20/14 39 No Successful vaginal 3.43 kg Female 2.5 hrs leonora barbosa [facility] 08/05/18 39 No Successful vaginal Female 08/05/18 38 No Successful vaginal 3.09 kg Female 1 hr. 37 min. Ana Crouch CNM Delivery Date: 11/09/11 No notes to display Delivery Date: 01/20/14 ANA Macias Delivery Date: 08/05/18 Josiane Aguilar Delivery Date: 08/05/18 precipitous labor< 3 hrs. Inez Mcfadden LPN Exam Narrative Exam Narrative: CONST: Healthy appearing patient, in no acute distress. Well hydrated. Alert and oriented. HENMT: Head nomocephalic, normal to inspection. Atraumatic. Hearing grossly normal. EYES: General normal appearance. Alignment normal. Eyelids normal. Conjunctiva normal. Sclera normal. NECK: Normal visual inspection. FROM. No lymphadenopathy. Trachea midline. No Midline tenderness. CHEST: Normal insepection of the chest. No palpable reproducible chest pain with palpation RESP: Normal respiratory effort. Speaking full sentences. No cough. No wheezing. No retractions. Clear to auscaltation. Breath sound equal and present bilaterally. CARDIO: No JVD. Normal PMI. Regular Rate. Regular Rhythm. Normal peripheral pulses. GI: Normal inspection of abdomen. No distension. Soft. Nontender. Bowel sounds present in all 4 quadrants. No rebound. No gaurding. MUSCULOSKELETAL: Normal Gait. FROM of all extremities. Distal neurovascularly intact. Sensation intact distally. SKIN: Normal. Dry. No rashes. NEURO: Alert and awake. Speech clear. PSYCH: Anxious affect. Cooperative. Course Vital Signs Vital signs: Vital Signs Temperature 36.9 C 08/02/19 19:20 Pulse 88 08/02/19 19:20 Respiratory Rate 16 08/02/19 19:20 Blood Pressure 136/74 08/02/19 19:20 Pulse Oximetry 97 08/02/19 19:20 Temperature 36.9 C 08/02/19 19:20 Temperature Source Oral 08/02/19 19:20 Pulse 88 08/02/19 19:20 Respiratory Rate 16 08/02/19 19:23 Respiratory Effort 08/02/19 19:23 Respiratory Depth Normal 08/02/19 19:23 Respiratory Pattern Normal 08/02/19 19:23 Blood Pressure 136/74 08/02/19 19:20 Blood Pressure Position Sitting 08/02/19 19:20 Pulse Oximetry 97 08/02/19 19:20 Oxygen Delivery Method Room Air 08/02/19 19:20 Oxygen Flow Rate 0 08/02/19 19:20 Pain Level 7 08/02/19 19:20
[2019-08-02 20:22] LABS: Abs Immature Grans 0.01 k/cumm (0.0-0.09); Absolute Basophil Count 0.02 k/cumm (0.0-0.2); Absolute Eosinophil Count 0.09 k/cumm (0.0-0.7); Absolute Lymphocyte Count 2.26 k/cumm (1.2-3.4); Absolute Monocyte Count 0.63 k/cumm (0.11-0.7); Absolute Neutrophil Count 3.65 k/cumm (1.2-6.7); Basophils % 0.3; Eosinophils % 1.4; HCT 42.4 % (36.0-46.0); HGB 14.3 g/dL (12.0-15.5); Immature Grans % 0.2 %; Lymphocytes % 33.9; Mean Corp. HGB Concentration 33.7 g/dL (32.0-36.0); Mean Corpuscular Hemoglobin 29.1 pg (27.0-33.0); Mean Corpuscular Volume 86.2 fL (80-95); Mean Platelet Volume 10.1 fL (8.0-11.0); Monocytes % 9.5; Neutrophils % 54.7; Platelet Count 273 x1000/uL (130-400); RBC 4.92 m/cumm (4.00-5.20); RBC Distribution Width 13.1 % (11.7-14.6); White Blood Cell Count 6.66 k/cumm (4.4-10.8)
--- NOTE | 2019-08-02 20:32 | DI.RAD_ITS ---
EXAM: XR CHEST 2V PA LATERAL CLINICAL HISTORY: chest pain TECHNIQUE: 2D digital imaging was performed. COMPARISON: ABD FLAT UPRIGHT PA CHEST from 09/26/2010 FINDINGS: The heart is not enlarged. The lungs are clear and well expanded. No pleural effusion seen. Mediastin al contours appear intact. IMPRESSION: Normal chest RADIATION DOSE DELIVERED: Total DLP
--- NOTE | 2019-08-02 20:37 | DI.VRAD_ITS ---
PROCEDURE INFORMATION: Exam: XR Chest, 2 Views Exam date and time: 08/02/2019 8:30 PM Age: 28 years old Clinical indication: Chest pain; Type not specified TECHNIQUE: Imaging protocol: XR of the chest Views: 2 views. COMPARISON: No relevant prior studies available. FINDINGS: Lungs: Clear lungs. Pleural space: No pneumothorax. No sizable pleural effusion. Heart/Mediastinum: No cardiomegaly. Bones/joints: Unremarkable. IMPRESSION: Clear lungs. Dictated and Authenticated by: Gurmeet Mata MD. Ordering:NATALIE Montejo MD
[2019-08-02 20:41] LABS: ALT 39 U/L (14-59); AST 16 U/L (15-37); Alkaline Phosphatase 58 U/L (46-116); Anion Gap 8.3 mmol/L (3-11); BUN 12 mg/dL (7-18); Bilirubin, Total 0.5 mg/dL (0.2-1.0); CO2 26.7 mmol/L (21.0-32.0); Calcium 8.9 mg/dL (8.5-10.1); Chloride 104 mmol/L (98-107); Glucose 86 mg/dL (74-106); Magnesium 1.8 mg/dL (1.8-2.4); Potassium 3.3 mmol/L (3.5-5.1); Sodium 139 mmol/L (136-145); Total Protein 7.5 g/dL (6.4-8.2)
[2019-08-02 20:48] LABS: Troponin I < 0.05 ng/Ml (<0.06)
[2019-08-02 20:50] LABS: D-Dimer 225 ng/mlFEU (<500)
[2019-08-02] MEDS: LORazepam 1 MG TAB PO ×3 (20:57→22:53)
[2019-08-02 21:04] LABS: FREE T4 0.86 ng/dL (0.76-1.46)
[2019-08-02 21:12] VITALS: BP 123/76; PULSE 78; RESP 16; O2SAT 99
== END 2019-08-02 22:55 | disposition home or self-care (01) ==
PROVIDERS: Emergency Provider Physician Assistant; PCP Nurse Practitioner Family
DX: K29.70 Gastritis, unspecified, without bleeding (principal); R07.89 Other chest pain; F41.9 Anxiety disorder, unspecified
CPT/HCPCS: 36415; 80053; 93005; 99284; 71046; 83735; 84439; 84443; 84484; 85025; 85379; 93010

== ENCOUNTER 2019-09-06 14:20 | Outpatient (REF) | payer OTHER, SELFPAY ==
[2019-09-06 19:39] LABS: FREE T4 0.98 ng/dL (0.76-1.46); TSH 1.83 uIU/mL (0.36-3.74)
== END 2019-09-06 14:40 ==
LOC: NCHCN 14:20
PROVIDERS: PCP Nurse Practitioner Family; Visit Provider Physician Assistant
DX: E07.81 Sick-euthyroid syndrome (principal)
CPT/HCPCS: 84439; 84443

== ENCOUNTER 2019-10-15 12:20 | Outpatient (REF) | payer OTHER, SELFPAY | END 2019-10-15 12:40 | LOC: NCHCN 12:20 | PROVIDERS: PCP Nurse Practitioner Family; Visit Provider Family Medicine | DX: K30 Functional dyspepsia (principal) | CPT/HCPCS: 87338 ==

== ENCOUNTER 2020-02-11 16:16 | Outpatient (REF) | payer OTHER, SELFPAY ==
[2020-02-16 16:05] LABS: Patient Race White; SARS-CoV-2 RNA Undetected (Undetected); SARS-CoV-2 Specimen Source Nasal
== END 2020-02-11 16:36 ==
LOC: LBO 16:16
PROVIDERS: PCP Nurse Practitioner Family; Visit Provider Nurse Practitioner Family
DX: Z11.59 Encounter for screening for other viral diseases (principal)
CPT/HCPCS: U0003

== ENCOUNTER 2020-02-29 02:45 | Outpatient (CLI) | payer OTHER, SELFPAY ==
--- NOTE | 2020-02-29 08:15 | DI.US_ITS ---
EXAM: US BREAST LT COMPLETE CLINICAL HISTORY: left breast pain, N64.4 TECHNIQUE: Ultrasound performed using standard protocol. COMPARISON: US US OB LAURA weight from 05/03/2018 FINDINGS: Left breast ultrasound was performed. The patient has reportedly had left breast pain no palpable ab normality. Whole breast scanning was performed. No focal mass identified. No breast cyst seen. IMPRESSION: Negative left breast ultrasound. DATA REPOSITORY:
== END 2020-02-29 03:05 ==
PROVIDERS: PCP Nurse Practitioner Family; Visit Provider Nurse Practitioner Family
DX: N64.4 Mastodynia (principal)
CPT/HCPCS: 76642

== ENCOUNTER 2022-02-26 16:31 | Outpatient (REF) | payer OTHER, SELFPAY ==
--- NOTE | 2022-02-26 15:40 | PAPFT_PTH ---
PATIENT: Cecilia Palacios LOC: [facility]#:[id number] AGE/SX: 31/F ROOM: RE02/26/[address]: Kumar Arteaga : 1990 BED: DIS: 02/26/2022 SPEC #: [id number] RECD: 03/01/22 12:41 STATUS: DAISY REQ #: [id number] CHARO: 02/26/22 15:[address]: Kumar Arteaga DEPT: [facility] Cytology RECD BY: Mora Howard ENTERED: 03/01/22 12:42 SP TYPE: PAPFT DONALD DR: Nolvia Becerra Tissues: 1 - CX/ENDOCX FOR PAP SMEARS Procedures: PAP THIN PREP/[facility] Screening HPV DNA PROBE Comments: [id number]
== END 2022-02-26 16:32 | disposition home or self-care (01) ==
LOC: NCHCN 16:31
PROVIDERS: PCP Nurse Practitioner Family; Visit Provider Physician Assistant
DX: Z12.4 Encounter for screening for malignant neoplasm of cervix (principal); Z11.51 Encounter for screening for human papillomavirus (HPV)
CPT/HCPCS: 88142; 87624

== ENCOUNTER 2024-09-19 14:14 | Outpatient (REF) | payer OTHER, SELFPAY ==
[2024-09-19 15:55] LABS: HCT 40.8 % (36.0-46.0); HGB 13.5 g/dL (11.2-15.7); MCH 28.5 pg (27.0-33.0); MCHC 33.1 % (32.0-36.0); MCV 86 fL (80-95); MPV 10.6 fL (8.0-11.0); Platelet Count 265 10^3/uL (130-400); RBC 4.73 10^6/uL (3.93-5.22); RDW 12.4 % (11.7-14.6); WBC 6.03 10^3/uL (4.4-10.8)
[2024-09-19 16:29] LABS: Hemoglobin A1C 5.1 % (<5.7)
[2024-09-19 16:46] LABS: BUN 15 mg/dL (7-18); CREATININE 0.9 mg/dL (0.55-1.02); Calcium 9.1 mg/dL (8.5-10.1); Calculated LDL 125 mg/dL (<100); Chloride 105 mmol/L (98-107); Cholesterol 193 mg/dL (<200); Estimated GFR 87.65 (mL/min/1.73m2); Glucose 92 mg/dL (74-106); HDL Cholesterol 56 mg/dL (>or=50); Potassium 4.1 mmol/L (3.5-5.1); Sodium 141 mmol/L (136-145); TSH 2.47 uIU/mL (0.36-3.74); Triglyceride 60 mg/dL (<150)
[2024-09-19 17:48] LABS: FREE T4 0.78 ng/dL (0.76-1.46)
== END 2024-09-19 14:15 | disposition home or self-care (01) ==
LOC: NCHCN 14:14
PROVIDERS: Visit Provider Physician Assistant
DX: Z00.00 Encounter for general adult medical examination without abnormal findings (principal); R63.5 Abnormal weight gain; Z13.1 Encounter for screening for diabetes mellitus
CPT/HCPCS: 80048; 80061; 85027; 83036; 84439; 84443